=== PATIENT | female | born 1985 | race Caucasian/White ===

== ENCOUNTER → 2017-10-23 21:11 | Emergency (ER) | payer MEDICAID, OTHER ==
[2017-10-23 21:11] VITALS: BMI 21.1
== END | disposition left against medical advice (07) ==
LOC: C.ER 21:11
DX: Z02.89 Encounter for other administrative examinations (principal); M25.531 Pain in right wrist

== ENCOUNTER → 2017-10-23 22:50 | Emergency (ER) | payer MEDICAID, OTHER ==
[2017-10-23 22:50] VITALS: BMI 21.1
== END | disposition left against medical advice (07) ==
LOC: C.ER 22:50
DX: Z02.89 Encounter for other administrative examinations (principal); M25.549 Pain in joints of unspecified hand

== ENCOUNTER 2018-01-16 14:18 | Emergency (ER) | payer OTHER ==
[2018-01-16 14:18] VITALS: BMI 21.1
[2018-01-16 14:44] VITALS: O2SAT 100
[2018-01-16] MEDS ORDERED: (Novolin R) Insulin Human Regular 100 units/ml vial IV STA ×2 (16:11→16:36)
[2018-01-16] MEDS ORDERED: Sodium Chloride 0.9% 1,000 ML IV STA ×2 (16:11→16:39)
[2018-01-16 16:37] LABS: BASO # 0.1 K/uL (0.0-0.2); BASO % 2.1 % (0.0-2.0); EOS # 0.1 K/uL (0.0-0.7); EOS % 0.9 % (0.0-4.0); HEMOGLOBIN 14.8 g/dL (11.0-16.0); LYMPH # 1.5 K/uL (1.0-4.3); LYMPH % 20.7 % (20.0-40.0); MEAN CORPUSCULAR HEMOGLOBIN 31.3 pg (27.0-31.0); MEAN PLATELET VOLUME 9.8 fL (7.2-11.7); MONO # 0.5 K/uL (0.0-0.8); MONO % 6.9 % (0.0-10.0); NEUT % 69.4 % (50.0-75.0); RBC 4.73 Mil/uL (3.80-5.20); WHITE BLOOD COUNT 7.2 K/uL (4.8-10.8)
[2018-01-16] MEDS ORDERED: (Novolin R) Insulin Human Regular 100 units/ml vial ONE (16:55)
[2018-01-16 16:56] LABS: ALB/GLOB RATIO 1.4 (1.0-2.1); ALBUMIN 4.3 g/dL (3.5-5.0); ALT/SGPT 26 U/L (9-52); AMYLASE 92 U/L (30-110); AST/SGOT 24 U/L (14-36); BLOOD UREA NITROGEN 9 mg/dL (7-17); CALCIUM 9.9 mg/dl (8.6-10.4); GFR AFRICAN-AMERICAN > 60; GFR NON-AFRICAN AMERICAN > 60; LIPASE 219 U/L (23-300)
[2018-01-16] MEDS ORDERED: Sodium Chloride 0.9% 1,000 ML ONE (16:57)
[2018-01-16 17:03] LABS: SQUAMOUS EPITHIAL 2 /hpf (0-5); URINE BACTERIA RARE (<OCC); URINE BILIRUBIN NEGATIVE (NEGATIVE); URINE BLOOD NEGATIVE (NEGATIVE); URINE CLARITY Clear (Clear); URINE COLOR Straw (YELLOW); URINE GLUCOSE (UA) 3+ mg/dL (Normal); URINE LEUKOCYTE ESTERASE NEG Leu/uL (Negative); URINE PROTEIN NEGATIVE (NEGATIVE); URINE UROBILINOGEN NORMAL mg/dL (0.2-1.0)
--- NOTE | 2018-01-16 17:06 | RAD ---
HISTORY: weakness, elevated blood sugar COMPARISON: No prior. TECHNIQUE: Chest PA and lateral FINDINGS: LUNGS: No active pulmonary disease. PLEURA: No significant pleural effusion identified. No pneumothorax apparent. CARDIOVASCULAR: Normal. OSSEOUS STRUCTURES: No significant abnormalities. VISUALIZED UPPER ABDOMEN: Normal. OTHER FINDINGS: None. IMPRESSION: No acute cardiopulmonary disease appreciated.
--- NOTE | 2018-01-16 17:38 | C.PDOC ---
History Of Present Illness 32-year-old female, PMHx includes Diabetes Type I, presents to the emergency department with complaints of two-week duration of high blood sugar. Patient states she is also experiencing dysuria for the past four days. Pt was referred to ED for further evaluation by Dr Ibanez. Of note, pt states she is compliant with her DM medication, and has also exceeded her regular dose, but continues to be hyperglycemic. No chest pain, fever, chills, or any other associated symptoms. No other complaints at this time. Time Seen by Provider: 01/16/18 14:49 Chief Complaint (Nursing): High Blood Sugar History Per: Patient History/Exam Limitations: no limitations Current Symptoms Are (Timing): Still Present Past Medical History Reviewed: Historical Data, Nursing Documentation, Vital Signs Vital Signs: Last Vital Signs Temp 98.1 F 01/16/18 17:39 Pulse 85 01/16/18 17:39 Resp 16 01/16/18 17:39 BP 146/90 01/16/18 17:39 Pulse Ox 100 01/16/18 18:39 - Medical History PMH: Anemia, Diabetes, Kidney Stones - [employer] Procedures INJECT/INFUSE ELECTROLYT (08/21/13) INJECT/INFUSE NEC (03/09/15) Family History: States: No Known Family Hx - Social History Hx Tobacco Use: Yes Hx Alcohol Use: No Hx Substance Use: No - Immunization History Hx Tetanus Toxoid Vaccination: Yes Hx Influenza Vaccination: Yes (2016) Hx Pneumococcal Vaccination: Yes Review Of Systems Constitutional: Negative for: Fever Cardiovascular: Negative for: Chest Pain Respiratory: Negative for: Shortness of Breath Gastrointestinal: Negative for: Vomiting Genitourinary: Positive for: Dysuria. Negative for: Frequency Musculoskeletal: Negative for: Back Pain Neurological: Negative for: Weakness, Numbness, Headache, Dizziness Physical Exam - Physical Exam Appears: Well, Non-toxic, No Acute Distress Skin: Normal Color, Warm, Dry, No Rash Head: Normacephalic Eye(s): bilateral: PERRL Nose: Normal Oral Mucosa: Moist Lips: Normal Appearing Neck: Normal ROM Chest: Symmetrical Cardiovascular: Rhythm Regular, No Murmur Respiratory: Normal Breath Sounds, No Accessory Muscle Use Gastrointestinal/Abdominal: Soft, No Tenderness Extremity: Normal ROM, No Pedal Edema, No Calf Tenderness, No Deformity, No Swelling Neurological/Psych: Oriented x3, Normal Speech ED Course And Treatment - Laboratory Results Result Diagrams: 01/16/18 16:27 01/16/18 16:27 O2 Sat by Pulse Oximetry: 100 (RA) Pulse Ox Interpretation: Normal Progress Note: Case discussed with Dr Ibanez, states he would like to admit patient for observation. Pt states she would like to sign out AMA. This patient is choosing to leave against medical advice. I have personally explained to the pt. that choosing to do so may result in permanent bodily harm or . I have discussed at great. length that without further evaluation and monitoring there may be unforeseen circumstances and/or. deterioration causing permanent bodily harm or as a result of their choice. The pt verbalized. these risks back to the physician in laymans terms. The pt is alert, oriented, and shows the mental. capacity to make clear decisions regarding the pts health care at this time. The pt continues to wish. to leave against medical advice. In light of the pts decision to leave AMA, follow-up has been arranged and the pt is aware of. the importance of following up as instructed. The pt has been advised that they should return to the. ED immediately if they change their mind at any time, or if their condition begins to change or worsen. in any way. Disposition - Disposition Disposition: AGAINST MEDICAL ADVICE Disposition Time: 17:38 Condition: STABLE Additional Instructions: Follow up with your PMD and Endoctinologist within 1-2 days. Return to ED if feel worse. Instructions: Hyperglycemia, Adult (DC) Forms: [employer] [facility] (Hebrew) - Clinical Impression Clinical Impression: Hyperglycemia, Diabetes mellitus type 1 - Scribe Statement The provider has reviewed the documentation as recorded by the Scribe (Yamileth Rodriguez) All medical record entries made by the Scribe were at my direction and personally dictated by me. I have reviewed the chart and agree that the record accurately reflects my personal performance of the history, physical exam, medical decision making, and the department course for this patient. I have also personally directed, reviewed, and agree with the discharge instructions and disposition.
[2018-01-16 17:39] VITALS: BP 146/90; PULSE 85; RESP 16; TEMP 98.1
== END 2018-01-16 17:58 | disposition left against medical advice (07) ==
LOC: C.ER 14:18
DX: E10.65 Type 1 diabetes mellitus with hyperglycemia (principal); D64.9 Anemia, unspecified; Z87.442 Personal history of urinary calculi
CPT/HCPCS: 71046; 80053; 81001; 82150; 82948; 83690; 84702; 85025; 99285; J7040

== ENCOUNTER 2018-03-20 20:25 | Emergency (ER) | payer OTHER ==
[2018-03-20 20:25] VITALS: BMI 21.1
[2018-03-20 20:49] VITALS: RESP 18; O2SAT 99
[2018-03-20] MEDS ORDERED: Sodium Chloride 0.9% 1,000 ML IV ONE (21:03)
--- NOTE | 2018-03-20 21:03 | C.PDOC ---
History Of Present Illness 32 y/o female presents to ED with c/o bilateral flank pain worsening "for few days" associated with dysuria and foul smelling urine. Patient denies fever, chills, nausea, vomiting, hematuria or any other complaints at this time. Time Seen by Provider: 03/20/18 21:01 Chief Complaint (Nursing): Female Genitourinary History Per: Patient History/Exam Limitations: no limitations Onset/Duration Of Symptoms: Days Current Symptoms Are (Timing): Still Present Severity: Mild Pain Scale Rating Of: 2 Location Of Pain/Discomfort: Suprapubic Radiation Of Pain To:: Flank Quality Of Discomfort: "Pain" Associated Symptoms: Urinary Symptoms. denies: Fever, Chills Past Medical History Reviewed: Historical Data, Nursing Documentation, Vital Signs Vital Signs: Last Vital Signs Temp 98.8 F 03/20/18 20:45 Pulse 79 03/20/18 20:45 Resp 18 03/20/18 20:45 BP 148/89 03/20/18 20:45 Pulse Ox 99 03/20/18 21:42 - Medical History PMH: Anemia, Diabetes, Kidney Stones Surgical History: No Surg Hx - [facility] Procedures INJECT/INFUSE ELECTROLYT (08/21/13) INJECT/INFUSE NEC (03/09/15) Family History: States: No Known Family Hx - Social History Hx Tobacco Use: Yes Hx Alcohol Use: No Hx Substance Use: No - Immunization History Hx Tetanus Toxoid Vaccination: Yes Hx Influenza Vaccination: Yes (2017) Hx Pneumococcal Vaccination: Yes Review Of Systems Constitutional: Negative for: Fever, Chills Gastrointestinal: Positive for: Abdominal Pain. Negative for: Nausea, Vomiting Genitourinary: Positive for: Dysuria. Negative for: Hematuria, Vaginal Discharge Musculoskeletal: Negative for: Back Pain Skin: Negative for: Rash Physical Exam - Physical Exam Appears: Non-toxic, No Acute Distress Skin: Warm, Dry, No Rash Head: Normacephalic Eye(s): bilateral: PERRL, EOMI Oral Mucosa: Moist Neck: Supple Cardiovascular: Rhythm Regular Respiratory: No Rales, No Rhonchi, No Wheezing Gastrointestinal/Abdominal: Soft, Tenderness (Mild suprapubic), No Guarding, No Rebound Back: No CVA Tenderness Neurological/Psych: Oriented x3, Normal Speech, Normal Cognition ED Course And Treatment - Laboratory Results Result Diagrams: 03/20/18 21:10 03/20/18 21:10 O2 Sat by Pulse Oximetry: 99 (RA) Pulse Ox Interpretation: Normal Disposition Counseled Patient/Family Regarding: Studies Performed, Diagnosis, Need For Followup, Rx Given - Disposition Referrals: Kavon Ibanez MD [Staff Provider] - Disposition: HOME/ ROUTINE Disposition Time: 21:02 Condition: FAIR Additional Instructions: Please return if symptoms recur Prescriptions: Nitrofurantoin Macrocrystals [Macrobid] 1 cap PO BID #14 cap Ondansetron ODT [Zofran ODT] 1 odt PO BID PRN #6 odt PRN Reason: Nausea/Vomiting Instructions: Urinary Tract Infection, Adult (DC) Forms: [employer] [facility] (Vietnamese) - Clinical Impression Clinical Impression: UTI (urinary tract infection) - Scribe Statement The provider has reviewed the documentation as recorded by the Scribe Kaylen Ramsey All medical record entries made by the Scribe were at my direction and personally dictated by me. I have reviewed the chart and agree that the record accurately reflects my personal performance of the history, physical exam, medical decision making, and the department course for this patient. I have also personally directed, reviewed, and agree with the discharge instructions and disposition.
[2018-03-20] MEDS ORDERED: Sodium Chloride 0.9% 1,000 ML ONE (21:10)
[2018-03-20 21:11] LABS: HCG,QUALITATIVE URINE NEGATIVE (NEGATIVE)
[2018-03-20 21:14] LABS: BASO # 0.1 K/uL (0.0-0.2); BASO % 0.7 % (0.0-2.0); EOS # 0.1 K/uL (0.0-0.7); EOS % 0.8 % (0.0-4.0); HEMOGLOBIN 14.1 g/dL (11.0-16.0); LYMPH # 3.6 K/uL (1.0-4.3); LYMPH % 36.4 % (20.0-40.0); MEAN CELL VOLUME 88.8 fL (81.0-99.0); MEAN CORPUSCULAR HEMOGLOBIN 30.1 pg (27.0-31.0); MEAN CORPUSCULAR HGB CONC 33.9 g/dL (33.0-37.0); MEAN PLATELET VOLUME 8.7 fL (7.2-11.7); MONO % 10.3 % (0.0-10.0); NEUT % 51.8 % (50.0-75.0); NRBC % 0.1 % (0.0-2.0); RBC 4.69 Mil/uL (3.80-5.20); RED CELL DISTRIBUTION WIDTH 12.6 % (11.5-14.5); WHITE BLOOD COUNT 9.7 K/uL (4.8-10.8)
[2018-03-20 21:20] LABS: SQUAMOUS EPITHIAL 1 /hpf (0-5); URINE BACTERIA OCC (<OCC); URINE BILIRUBIN NEGATIVE (NEGATIVE); URINE BLOOD 1+ (NEGATIVE); URINE CLARITY Hazy (Clear); URINE COLOR Yellow (YELLOW); URINE GLUCOSE (UA) 1+ mg/dL (Normal); URINE LEUKOCYTE ESTERASE 3+ Leu/uL (Negative); URINE PROTEIN 1+ mg/dL (NEGATIVE); URINE UROBILINOGEN NORMAL mg/dL (0.2-1.0)
[2018-03-20 21:25] LABS: ALB/GLOB RATIO 1.4 (1.0-2.1); ALBUMIN 4.2 g/dL (3.5-5.0); ALT/SGPT 31 U/L (9-52); AST/SGOT 17 U/L (14-36); BLOOD UREA NITROGEN 8 mg/dL (7-17); CALCIUM 9.6 mg/dl (8.6-10.4); GFR AFRICAN-AMERICAN > 60; GFR NON-AFRICAN AMERICAN > 60; LIPASE 35 U/L (23-300)
[2018-03-20 21:27] LABS: PROTHROMBIN TIME 10.9 SECONDS (9.7-12.2)
[2018-03-20] MEDS ORDERED: Piperacillin/Tazobact 3.375 gm 100 ML IVPB STA (21:32)
[2018-03-20] MEDS ORDERED: Piperacillin/Tazobact 3.375 gm 100 ML IVPB ONE (21:46)
[2018-03-20 22:54] VITALS: BP 131/84; PULSE 82; TEMP 98.4
== END 2018-03-20 22:52 | disposition home or self-care (01) ==
LOC: C.ER 20:25
DX: N39.0 Urinary tract infection, site not specified (principal)
CPT/HCPCS: 80053; 81001; 82948; 83690; 84703; 85025; 85610; 85730; 96361; 96374; 96375; 99285; J2405; J2543; J7030

== ENCOUNTER 2018-06-04 17:37 | Emergency (ER) | payer MEDICAID, OTHER ==
[2018-06-04 17:38] VITALS: BMI 21.1
[2018-06-04 17:46] VITALS: TEMP 98.5
[2018-06-04] MEDS ORDERED: Sodium Chloride 0.9% 1,000 ML ONE ×2 (18:46→19:56)
[2018-06-04] MEDS ORDERED: Sodium Chloride 0.9% 1,000 ML IV ONE ×2 (19:20)
[2018-06-04 19:27] LABS: BASO # 0.1 K/uL (0.0-0.2); BASO % 0.8 % (0.0-2.0); EOS % 0.3 % (0.0-4.0); HEMOGLOBIN 13.8 g/dL (11.0-16.0); LYMPH # 2.2 K/uL (1.0-4.3); LYMPH % 14.7 % (20.0-40.0); MEAN CELL VOLUME 88.6 fL (81.0-99.0); MEAN CORPUSCULAR HEMOGLOBIN 30.5 pg (27.0-31.0); MEAN CORPUSCULAR HGB CONC 34.4 g/dL (33.0-37.0); MEAN PLATELET VOLUME 9.9 fL (7.2-11.7); MONO # 0.8 K/uL (0.0-0.8); MONO % 5.6 % (0.0-10.0); NEUT # 11.8 K/uL (1.8-7.0); NEUT % 78.6 % (50.0-75.0); NRBC % 0.1 % (0.0-2.0); RBC 4.53 Mil/uL (3.80-5.20); RED CELL DISTRIBUTION WIDTH 13.5 % (11.5-14.5)
[2018-06-04 19:30] LABS: SQUAMOUS EPITHIAL < 1 /hpf (0-5); URINE BACTERIA OCC (<OCC); URINE BILIRUBIN NEGATIVE (NEGATIVE); URINE BLOOD NEGATIVE (NEGATIVE); URINE CLARITY Clear (Clear); URINE COLOR Yellow (YELLOW); URINE GLUCOSE (UA) 3+ mg/dL (Normal); URINE LEUKOCYTE ESTERASE NEG Leu/uL (Negative); URINE PROTEIN NEGATIVE (NEGATIVE); URINE UROBILINOGEN NORMAL mg/dL (0.2-1.0)
[2018-06-04 19:40] LABS: ALB/GLOB RATIO 1.4 (1.0-2.1); ALBUMIN 4.2 g/dL (3.5-5.0); ALT/SGPT 33 U/L (9-52); AST/SGOT 13 U/L (14-36); BLOOD UREA NITROGEN 10 mg/dL (7-17); CALCIUM 9.5 mg/dl (8.6-10.4); GFR NON-AFRICAN AMERICAN > 60
[2018-06-04 20:01] LABS: VENOUS BLOOD GAS BASE EXCESS -0.2 mmol/L (0.0-2.0); VENOUS BLOOD GAS PCO2 47 mmHg (40-60); VENOUS BLOOD GAS PO2 23 mm/Hg (30-55); VENOUS BLOOD PH 7.35 (7.32-7.43)
[2018-06-04 21:01] VITALS: BP 136/85; PULSE 88; RESP 18; O2SAT 100
--- NOTE | 2018-06-04 22:07 | C.PDOC ---
History Of Present Illness 32 year old female presents to the ER with a complaint of dysuria and increased blood sugar. Patient is a known type I diabetic, states her sugar level on her glucometer at home was too high to calculate. She took and extra dose of her insulin this morning. Denies nausea, vomiting, fever, or cough. Chief Complaint (Nursing): High Blood Sugar History Per: Patient History/Exam Limitations: no limitations Onset/Duration Of Symptoms: Hrs Current Symptoms Are (Timing): Still Present Current Diabetic Medications: Insulin Causative (Exacerbating) Factor(s): Other (Not known) Associated Infectious Symptoms: Dysuria. denies: Cough, Sore Throat, Nausea, Vomiting, Other (Fever) Recent travel outside of the [place]: No Past Medical History Reviewed: Historical Data, Nursing Documentation, Vital Signs Vital Signs: Last Vital Signs Temp 98.5 F 06/04/18 21:01 Pulse 88 06/04/18 21:01 Resp 18 06/04/18 21:01 BP 136/85 06/04/18 21:01 Pulse Ox 100 06/04/18 21:01 - Medical History PMH: Anemia, Diabetes, Kidney Stones Denies: Depression - [place] Procedures INJECT/INFUSE ELECTROLYT (08/21/13) INJECT/INFUSE NEC (03/09/15) Family History: States: Unknown Family Hx - Social History Hx Tobacco Use: Yes Hx Alcohol Use: No Hx Substance Use: No - Immunization History Hx Tetanus Toxoid Vaccination: Yes Hx Influenza Vaccination: Yes (2017) Hx Pneumococcal Vaccination: Yes (6 Months ago) Review Of Systems Constitutional: Negative for: Fever, Chills Cardiovascular: Negative for: Chest Pain, Palpitations Respiratory: Negative for: Cough, Shortness of Breath Gastrointestinal: Negative for: Nausea, Vomiting, Abdominal Pain Genitourinary: Positive for: Dysuria Neurological: Negative for: Weakness, Numbness Physical Exam - Physical Exam Appears: Non-toxic Skin: Normal Color, Warm, Dry Head: Atraumatic, Normacephalic Eye(s): bilateral: Normal Inspection Oral Mucosa: Moist Neck: Normal, Supple Chest: Symmetrical, No Tenderness Cardiovascular: Rhythm Regular Respiratory: Normal Breath Sounds, No Rales, No Rhonchi, No Wheezing Gastrointestinal/Abdominal: Soft, No Tenderness Back: No CVA Tenderness Extremity: Normal ROM (x4) Neurological/Psych: Oriented x3, Normal Speech Gait: Steady ED Course And Treatment - Laboratory Results Result Diagrams: 06/04/18 19:23 06/04/18 19:23 O2 Sat by Pulse Oximetry: 100 (Room air) Pulse Ox Interpretation: Normal Progress Note: Blood work and urinalysis ordered. IV fluids and zofran administered. Disposition - Disposition Referrals: Angeles Brown, [Non-Staff] - Disposition: HOME/ ROUTINE Disposition Time: 20:30 Condition: IMPROVED Additional Instructions: MICHAEL VILLEGAS, thank you for letting us take care of you today. Your provider was Nahid Louis DO and you were treated for HIGH BLOOD SUGAR/KIDNEY PAIN. The emergency medical care you received today was directed at your acute sy mptoms. If you were prescribed any medication, please fill it and take as directed. It may take several days for your symptoms to resolve. Return to the Emergency Department if your symptoms worsen, do not improve, or if you have any other problems. Please contact your doctor or call one of the physicians/clinics you have been referred to that are listed on the Patient Visit Information form that is included in your discharge packet. Bring any paperwork you were given at discharge with you along with any medications you are taking to your follow up visit. Our treatment cannot replace ongoing medical care by a primary care provider outside of the emergency department. Thank you for allowing the [facility] team to be part of your care today. You had a urine culture: It will take several days for the results, if any change in treatment is needed we will contact you. Follow up with your primary care doctor in 2-3 days for re-evaluation and further management. Prescriptions: Ibuprofen [Motrin] 600 mg PO Q6 PRN #20 tab PRN Reason: Pain, Moderate (4-7) Sulfamethoxazole/Trimethoprim [Bactrim DS 800 mg-160 mg] 1 tab PO BID #20 tab Instructions: Urinary Tract Infection, Adult (DC), Hyperglycemia, Adult (DC) Forms: [employer] (Russian) - Clinical Impression Clinical Impression: Hyperglycemia, Diabetes mellitus type 1 - Scribe Statement The provider has reviewed the documentation as recorded by the Scribe Gino Morse All medical record entries made by the Scribe were at my direction and personally dictated by me. I have reviewed the chart and agree that the record accurately reflects my personal performance of the history, physical exam, medical decision making, and the department course for this patient. I have also personally directed, reviewed, and agree with the discharge instructions and d isposition.
== END 2018-06-04 21:19 | disposition home or self-care (01) ==
LOC: C.ER 17:37
DX: E10.65 Type 1 diabetes mellitus with hyperglycemia (principal); Z79.4 Long term (current) use of insulin; Z72.0 Tobacco use
CPT/HCPCS: 80053; 81001; 82009; 82803; 82948; 85025; 87086; 96361; 96374; 99285; J2405; J7030

== ENCOUNTER 2018-12-19 01:25 | Emergency (ER) | payer OTHER ==
[2018-12-19 01:26] VITALS: BMI 21.1
[2018-12-19] MEDS ORDERED: Sodium Chloride 0.9% 1,000 ML IV STA (02:14)
--- NOTE | 2018-12-19 02:30 | C.PDOC ---
History Of Present Illness 33 year old female with PMHx of DM and celiac diseas presents to the ED c/o right flank pain and epigastric abdominal pain since 15:00. Patient thought it was kidney pain and took some Macrobid at home. Patient also reports having se veral episodes of vomiting today. Patient had kidney stones in the past, however states this pain is different. Patient denies fever, chills, diarrhea, dysuria, hematuria, CP, SOB, rash, weakness, numbness. Time Seen by Provider: 12/19/18 01:35 Chief Complaint (Nursing): Back Pain History Per: Patient History/Exam Limitations: no limitations Onset/Duration Of Symptoms: Hrs (15:00) Current Symptoms Are (Timing): Still Present Quality Of Discomfort: "Pain" Recent travel outside of the [place]: No Additional History Per: Patient Past Medical History Reviewed: Historical Data, Nursing Documentation, Vital Signs Vital Signs: Last Vital Signs Temp 974 F H 12/19/18 01:33 Pulse 102 H 12/19/18 01:33 Resp 22 12/19/18 01:33 BP 168/95 H 12/19/18 01:33 Pulse Ox 100 12/19/18 01:33 - Medical History PMH: Anemia, Diabetes, Kidney Stones Denies: Depression Surgical History: No Surg Hx - [facility] Procedures INJECT/INFUSE ELECTROLYT (08/21/13) INJECT/INFUSE NEC (03/09/15) Family History: States: Unknown Family Hx - Social History Hx Tobacco Use: Yes Hx Alcohol Use: No Hx Substance Use: No - Immunization History Hx Tetanus Toxoid Vaccination: Yes Hx Influenza Vaccination: Yes (2017) Hx Pneumococcal Vaccination: Yes (6 Months ago) Review Of Systems Constitutional: Negative for: Fever, Chills, Weakness Eyes: Negative for: Redness, Other (scleral icterus) ENT: Negative for: Mouth Swelling Cardiovascular: Negative for: Chest Pain Respiratory: Negative for: Cough, Shortness of Breath Gastrointestinal: Positive for: Vomiting, Abdominal Pain. Negative for: Diarrhea Genitourinary: Negative for: Dysuria Musculoskeletal: Positive for: Back Pain Skin: Negative for: Rash Neurological: Negative for: Weakness, Numbness, Headache, Dizziness Physical Exam - Physical Exam Appears: Well, Non-toxic, No Acute Distress Skin: Normal Color, Warm, No Rash Head: Atraumatic, Normacephalic Eye(s): bilateral: Normal Inspection (no scleral icterus), PERRL, EOMI Neck: Normal ROM, Supple Chest: Symmetrical Respiratory: No Accessory Muscle Use, Other (normal inspiratory effort) Gastrointestinal/Abdominal: Soft, Tenderness (diffusely tender mainly epigastrum ), No Distention Back: No CVA Tenderness, Other (ambulating with steady gait) Extremity: Normal ROM (x4 ) Neurological/Psych: Oriented x3, Normal Speech ED Course And Treatment - Laboratory Results Result Diagrams: 12/19/18 02:41 12/19/18 02:41 O2 Sat by Pulse Oximetry: 100 (ON RA) Pulse Ox Interpretation: Normal Medical Decision Making Medical Decision Making: Plan: * Labs * IV fluids * Toradol 30 mg IVP * Zofran 4 mg IVP * UA patient reports feeling improvement of pain and nausea symptoms after medication. she tolerated po intake prior to discharge. 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 - Scribe Statement The provider has reviewed the documentation as recorded by the Scribe Ney Hoover All medical record entries made by the Antonioibsakina were at my direction and personally dictated by me. I have reviewed the chart and agree that the record accurately reflects my personal performance of the history, physical exam, medical decision making, and the department course for this patient. I have also personally directed, reviewed, and agree with the discharge instructions and disposition.
[2018-12-19 02:46] LABS: BASO # 0.1 K/uL (0.0-0.2); BASO % 0.6 % (0.0-2.0); EOS # 0.1 K/uL (0.0-0.7); EOS % 1.2 % (0.0-4.0); HEMOGLOBIN 15.3 g/dL (11.0-16.0); LYMPH # 3.5 K/uL (1.0-4.3); LYMPH % 28.3 % (20.0-40.0); MEAN CORPUSCULAR HGB CONC 33.3 g/dL (33.0-37.0); MEAN PLATELET VOLUME 9.3 fL (7.2-11.7); MONO # 0.9 K/uL (0.0-0.8); NEUT # 7.8 K/uL (1.8-7.0); NEUT % 62.9 % (50.0-75.0); RBC 5.11 Mil/uL (3.80-5.20); RED CELL DISTRIBUTION WIDTH 13.4 % (11.5-14.5); WHITE BLOOD COUNT 12.4 K/uL (4.8-10.8)
[2018-12-19 02:51] LABS: SQUAMOUS EPITHIAL < 1 /hpf (0-5); URINE BACTERIA OCC (<OCC); URINE BILIRUBIN NEGATIVE (NEGATIVE); URINE BLOOD NEGATIVE (NEGATIVE); URINE CLARITY Clear (Clear); URINE COLOR Yellow (YELLOW); URINE GLUCOSE (UA) NORMAL (Normal); URINE LEUKOCYTE ESTERASE NEG Leu/uL (Negative); URINE PROTEIN NEGATIVE (NEGATIVE); URINE UROBILINOGEN NORMAL mg/dL (0.2-1.0)
[2018-12-19 03:04] LABS: ALB/GLOB RATIO 1.5 (1.0-2.1); ALBUMIN 4.6 g/dL (3.5-5.0); ALT/SGPT 24 U/L (9-52); AST/SGOT 23 U/L (14-36); BLOOD UREA NITROGEN 8 mg/dL (7-17); CALCIUM 9.9 mg/dl (8.6-10.4); GFR NON-AFRICAN AMERICAN > 60; LIPASE 41 U/L (23-300)
[2018-12-19 04:44] VITALS: BP 128/76; PULSE 84; RESP 20; TEMP 98.4
[2018-12-19 06:33] VITALS: O2SAT 100
== END 2018-12-19 04:42 | disposition home or self-care (01) ==
LOC: SUPCPDRO 01:25 → C.ER 01:25
DX: K29.70 Gastritis, unspecified, without bleeding (principal)
CPT/HCPCS: 80053; 81001; 81025; 82948; 83690; 85025; 96374; 96375; 99283; J1885; J2405; J7040